=== PATIENT | male | born 1980 | race Caucasian/White ===

== ENCOUNTER 2021-05-14 23:22 | Observation (INO) | payer OTHER ==
[2021-05-15] MEDS ORDERED: Vancomycin 2 GM in Sodium Chloride 0.9% 500 ML IV ONE (00:21)
[2021-05-15] MEDS ORDERED: Clindamycin Phosphate in D5W 900 MG in Premix Bag 1 BAG IV ONE ×2 (00:21)
[2021-05-15] MEDS ORDERED: Piperacillin/Tazobactam 4.5 GM in Sodium Chloride 0.9% 100 ML IV ONE (00:22)
[2021-05-15] MEDS ORDERED: HYDROmorphone 1 MG/ML Syringe IVPUSH PRN (00:24)
[2021-05-15] MEDS: Sodium Chloride 0.9% 1,000 ML IV SCH ×2 (00:56→22:05)
[2021-05-15] MEDS ORDERED: Insulin Regular, Human 100 Units/ML 3 ML Vial SUBCUT ONE (01:34)
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
[2021-05-15] MEDS ORDERED: Ondansetron 4 MG/2 ML SDV ONE (08:10)
[2021-05-15] MEDS ORDERED: Sodium Chloride 0.9% 1,000 ML ONE ×2 (08:10→09:03)
[2021-05-15] MEDS ORDERED: Midazolam 1 MG/ML 2 ML SDV ONE ×2 (08:11→08:23)
[2021-05-15] MEDS ORDERED: fentaNYL 100 MCG/2 ML SDV ONE (08:11)
[2021-05-15] MEDS ORDERED: Propofol 200 MG/20 ML SDV ONE ×3 (08:11→09:13)
[2021-05-15] MEDS ORDERED: Ketamine 500 mg/10 ML MDV ONE (08:12)
[2021-05-15] MEDS ORDERED: Albuterol 0.083% 2.5 MG/3 ML Neb Soln ONE (08:18)
[2021-05-15] MEDS ORDERED: HYDROmorphone 0.5 MG/0.5 ML Syringe IVPUSH PRN (08:38)
[2021-05-15] MEDS ORDERED: fentaNYL 100 MCG/2 ML SDV IVPUSH PRN (08:38)
[2021-05-15] MEDS ORDERED: Albuterol 0.083% 2.5 MG/3 ML Neb Soln NEB PRN (08:38)
[2021-05-15] MEDS ORDERED: Ondansetron 4 MG/2 ML SDV IVPUSH PRN (08:38)
[2021-05-15] MEDS ORDERED: Insulin Regular, Human 100 Units/ML 3 ML Vial SUBCUT SCH (09:00)
[2021-05-15] MEDS ORDERED: Polyethylene Glycol 3350 Powder 17 GM Packet PO PRN (09:51)
[2021-05-15] MEDS ORDERED: Acetaminophen/HYDROcodone 325-5 MG Tab PO PRN (09:51)
[2021-05-15] MEDS ORDERED: Ondansetron 4 MG Tab.DIS PO PRN (09:51)
--- NOTE | 2021-05-15 09:59 | PCM48HPAN ---
Post Anesthesia Note - EVALUATION WITHIN 48HRS OF ANESTHETIC Vital Signs in Normal Range: Yes Patient Participated in Evaluation: Yes Respiratory Function Stable: Yes Airway Patent: Yes Cardiovascular Function Stable: Yes Hydration Status Stable: Yes Pain Control Satisfactory: Yes Nausea and Vomiting Control Satisfactory: Yes Mental Status Recovered: Yes Vital Signs: Last Vital Signs Temp 38.6 C H 05/15/21 09:49 Pulse 112 H 05/15/21 09:49 Resp 12 05/15/21 09:49 BP 131/65 05/15/21 09:49 Pulse Ox 93 L 05/15/21 09:49
[2021-05-15 10:00] LABS: HEMOGLOBIN A1C 10.9 %
[2021-05-15] MEDS: Acetaminophen 325 MG Tab PO PRN ×2 (10:41→20:37)
[2021-05-15] MEDS: Clindamycin Phosphate in D5W 900 MG in Premix Bag 1 BAG IV SCH ×4 (10:50→17:23)
[2021-05-15] MEDS: Insulin Lispro 100 UNIT/ML 10 ML Vial SUBCUT SCH ×3 (11:16→21:13)
[2021-05-15] MEDS ORDERED: Insulin Glarg,Human.Rec.Analog 100 Unit/ML SUBCUT SCH (12:00)
[2021-05-15] MEDS ORDERED: Vancomycin 2 GM in Sodium Chloride 0.9% 500 ML IV SCH ×2 (12:00)
[2021-05-15] MEDS: Vancomycin 2 GM in Sodium Chloride 0.9% 500 ML IV SCH ×2 (12:01→20:27)
[2021-05-15] MEDS: Piperacillin/Tazobactam 4.5 GM in Sodium Chloride 0.9% 100 ML IV SCH ×2 (12:30→18:39)
--- NOTE | 2021-05-15 13:05 | PCM.CONS ---
H&P History of Present Illness - General Date of Service: 05/15/21 Admit Problem/Dx: Admission Diagnosis/Problem Admission Diagnosis/Problem Infection of skin - History of Present Illness Initial Comments - Free Text/Narative: 41-year-old male with uncontrolled type II diabetes mellitus who presented to the emergency room with a right medial upper thigh soft tissue infection. Patient states that he started having a tender area in the right upper thigh 2 days ago. He was admitted to surgery for surgical I&D and debridement. Patient's blood sugars were noted to be in the 300s and medicine was consulted. Patient underwent I&D this morning with good results and antibiotic coverage is being managed by surgical team. Patient states that he first developed diabetes several years ago. He was on Glucophage, and another medicine but stopped them when he ran out. He works full-time and was unable to get to the clinic. Patient denies any recent weight gain or loss. Right Thigh Pain Score (Numeric/FACES): 2 - Related Data Allergies/Adverse Reactions: Allergies Allergy/AdvReac Type Severity Reaction Status Date / Time ciprofloxacin [From Cipro] Allergy Cannot Verified 05/14/21 23:43 Remember Penicillins Allergy Rash Verified 05/14/21 23:43 Home Medications: Home Meds Cetirizine HCl [Zyrtec] 1 tab PO BEDTIME 05/14/21 [History] Past Medical History Endocrine/Metabolic History: Reports: Diabetes, Type II Hematologic History: Reports: Other (See Below) Other Hematologic History: skin graft on L foot 2000 - Infectious Disease History Infectious Disease History: Reports: Chicken Pox - Past Surgical History Musculoskeletal Surgical History: Reports: Other (See Below) Other Musculoskeletal Surgeries/Procedures:: L foot surgery, pins and screws placed Social & Family History - Family History Family Medical History: No Pertinent Family History - Tobacco Use Tobacco Use Status *Q: Current Every Day Tobacco User Years of Tobacco use: 23 Packs/Tins Daily: 0.7 Used Tobacco, but Quit: No Second Hand Smoke Exposure: Yes - Caffeine Use Caffeine Use: Reports: Coffee, Energy Drinks, Soda Caffeine Use Comment: Pt verbalized drinking approximately 12 pack a day of energy drinks and soda, coffee PRN. - Alcohol Use Date of Last Drink: 04/30/21 Time of Last Drink: 20:00 - Recreational Drug Use Recreational Drug Use: No H&P Review of Systems - Review of Systems: Review Of Systems: Comprehensive ROS is negative, except as noted in HPI. Exam - Exam Exam: See Below - Vital Signs Vital Signs: Last Vital Signs Temp 101.0 F H 05/15/21 10:41 Pulse 96 05/15/21 11:46 Resp 18 05/15/21 10:00 BP 114/57 L 05/15/21 11:46 Pulse Ox 96 05/15/21 11:46 Weight: 347 lb 8 oz - Exam Quality Assessment: No: Supplemental Oxygen General: Alert, Oriented HEENT: Conjunctiva Clear, EOMI, Hearing Intact, Mucosa Moist & [place] Neck: Supple, Trachea Midline, 2 Lungs: Clear to Auscultation, Normal Respiratory Effort Cardiovascular: Regular Rate, Regular Rhythm GI/Abdominal Exam: Normal Bowel Sounds, Soft, Non-Tender, No Organomegaly, No Distention, No Abnormal Bruit, No Mass Extremities: Normal Inspection, Normal Range of Motion, Non-Tender Neuro Extensive - Mental Status: Alert, Oriented x3, Normal Mood/Affect, Normal Cognition, Memory Intact Psychiatric: Alert, Normal Affect, Normal Mood - Patient Data Lab Results Last 24 hrs: Laboratory Results - last 24 hr 05/15/21 05/15/21 05/15/21 Range/Units 00:35 00:35 00:35 WBC 19.97 H (4.23-9.07) K/mm3 RBC 4.84 (4.63-6.08) M/mm3 Hgb 14.7 (13.7-17.5) gm/dl Hct 44.9 (40.1-51.0) % MCV 92.8 H (79.0-92.2) fl MCH 30.4 (25.7-32.2) pg MCHC 32.7 (32.2-35.5) g/dl RDW Std Deviation 43.9 (35.1-43.9) fL Plt Count 268 (163-337) K/mm3 MPV 8.5 L (9.4-12.3) fl Neut % (Auto) 81.7 H (34.0-67.9) % Lymph % (Auto) 6.9 L (21.8-53.1) % [place] % (Auto) 10.8 (5.3-12.2) % Eos % (Auto) 0.1 L (0.8-7.0) Baso % (Auto) 0.1 (0.1-1.2) % Neut # (Auto) 16.33 H (1.78-5.38) K/mm3 Lymph # (Auto) 1.38 (1.32-3.57) K/mm3 [place] # (Auto) 2.15 H (0.30-0.82) K/mm3 Eos # (Auto) 0.01 L (0.04-0.54) K/mm3 Baso # (Auto) 0.02 (0.01-0.08) K/mm3 Manual Slide Review Abnormal smear Sodium 132 L (136-145) mEq/L Potassium 4.2 (3.5-5.1) mEq/L Chloride 95 L (98-107) mEq/L Carbon Dioxide 27 (21-32) mEq/L Anion Gap 14.2 (5-15) BUN 7 (7-18) mg/dL Creatinine 0.9 (0.7-1.3) mg/dL Est Cr Clr Drug Dosing 113.78 mL/min Estimated GFR (MDRD) > 60 (>60) mL/min BUN/Creatinine Ratio 7.8 L (14-18) Glucose 357 H (70-99) mg/dL POC Glucose (70-99) mg/dL Hemoglobin A1c ( - 5.6) % Lactic Acid 1.8 (0.4-2.0) mmol/L Calcium 9.0 (8.5-10.1) mg/dL Total Bilirubin 0.6 (0.2-1.0) mg/dL AST 30 (15-37) U/L ALT 51 (16-63) U/L Alkaline Phosphatase 89 (46-116) U/L C-Reactive Protein 22.7 H* (<1.0) mg/dL Total Protein 7.3 (6.4-8.2) g/dl Albumin 3.1 L (3.4-5.0) g/dl Globulin 4.2 gm/dL Albumin/Globulin Ratio 0.7 L (1-2) SARS-CoV-2 RNA (KAR[facility]) (NEGATIVE) 05/15/21 05/15/21 05/15/21 Range/Units 00:35 01:05 07:37 WBC (4.23-9.07) K/mm3 RBC (4.63-6.08) M/mm3 Hgb (13.7-17.5) gm/dl Hct (40.1-51.0) % MCV (79.0-92.2) fl MCH (25.7-32.2) pg MCHC (32.2-35.5) g/dl RDW Std Deviation (35.1-43.9) fL Plt Count (163-337) K/mm3 MPV (9.4-12.3) fl Neut % (Auto) (34.0-67.9) % Lymph % (Auto) (21.8-53.1) % [place] % (Auto) (5.3-12.2) % Eos % (Auto) (0.8-7.0) Baso % (Auto) (0.1-1.2) % Neut # (Auto) (1.78-5.38) K/mm3 Lymph # (Auto) (1.32-3.57) K/mm3 [place] # (Auto) (0.30-0.82) K/mm3 Eos # (Auto) (0.04-0.54) K/mm3 Baso # (Auto) (0.01-0.08) K/mm3 Manual Slide Review Sodium (136-145) mEq/L Potassium (3.5-5.1) mEq/L Chloride (98-107) mEq/L Carbon Dioxide (21-32) mEq/L Anion Gap (5-15) BUN (7-18) mg/dL Creatinine (0.7-1.3) mg/dL Est Cr Clr Drug Dosing mL/min Estimated GFR (MDRD) (>60) mL/min BUN/Creatinine Ratio (14-18) Glucose (70-99) mg/dL POC Glucose 280 H (70-99) mg/dL Hemoglobin A1c 10.9 H ( - 5.6) % Lactic Acid (0.4-2.0) mmol/L Calcium (8.5-10.1) mg/dL Total Bilirubin (0.2-1.0) mg/dL AST (15-37) U/L ALT (16-63) U/L Alkaline Phosphatase (46-116) U/L C-Reactive Protein (<1.0) mg/dL Total Protein (6.4-8.2) g/dl Albumin (3.4-5.0) g/dl Globulin gm/dL Albumin/Globulin Ratio (1-2) SARS-CoV-2 RNA ([facility]AR[facility]) Negative (NEGATIVE) 05/15/21 Range/Units 10:48 WBC (4.23-9.07) K/mm3 RBC (4.63-6.08) M/mm3 Hgb (13.7-17.5) gm/dl Hct (40.1-51.0) % MCV (79.0-92.2) fl MCH (25.7-32.2) pg MCHC (32.2-35.5) g/dl RDW Std Deviation (35.1-43.9) fL Plt Count (163-337) K/mm3 MPV (9.4-12.3) fl Neut % (Auto) (34.0-67.9) % Lymph % (Auto) (21.8-53.1) % [place] % (Auto) (5.3-12.2) % Eos % (Auto) (0.8-7.0) Baso % (Auto) (0.1-1.2) % Neut # (Auto) (1.78-5.38) K/mm3 Lymph # (Auto) (1.32-3.57) K/mm3 [place] # (Auto) (0.30-0.82) K/mm3 Eos # (Auto) (0.04-0.54) K/mm3 Baso # (Auto) (0.01-0.08) K/mm3 Manual Slide Review Sodium (136-145) mEq/L Potassium (3.5-5.1) mEq/L Chloride (98-107) mEq/L Carbon Dioxide (21-32) mEq/L Anion Gap (5-15) BUN (7-18) mg/dL Creatinine (0.7-1.3) mg/dL Est Cr Clr Drug Dosing mL/min Estimated GFR (MDRD) (>60) mL/min BUN/Creatinine Ratio (14-18) Glucose (70-99) mg/dL POC Glucose 252 H (70-99) mg/dL Hemoglobin A1c ( - 5.6) % Lactic Acid (0.4-2.0) mmol/L Calcium (8.5-10.1) mg/dL Total Bilirubin (0.2-1.0) mg/dL AST (15-37) U/L ALT (16-63) U/L Alkaline Phosphatase (46-116) U/L C-Reactive Protein (<1.0) mg/dL Total Protein (6.4-8.2) g/dl Albumin (3.4-5.0) g/dl Globulin gm/dL Albumin/Globulin Ratio (1-2) SARS-CoV-2 RNA ([facility]) (NEGATIVE) Result Diagrams: 05/15/21 00:35 05/15/21 00:35 Sepsis Event Note - Evaluation Sepsis Screening Result: Possible Sepsis Risk - Focused Exam Vital Signs: Vital Signs Temp Temp Pulse Pulse Resp BP BP 05/15/21 11:46 96 114/57 L 05/15/21 11:32 97 119/58 L 05/15/21 11:17 95 133/59 L 05/15/21 11:02 93 128/64 05/15/21 10:45 131/68 05/15/21 10:41 101.0 F H 05/15/21 10:31 100.9 F H 98 132/57 L 05/15/21 10:27 103 H 108/57 L 05/15/21 10:00 103 H 18 138/63 05/15/21 09:49 101.5 F H 112 H 12 131/65 05/15/21 07:08 100.4 F 112 H 20 154/67 H 05/15/21 03:14 98.8 F 106 H 20 143/70 H Pulse Ox 05/15/21 11:46 96 05/15/21 11:32 95 05/15/21 11:17 96 05/15/21 11:02 96 05/15/21 10:45 95 05/15/21 10:41 05/15/21 10:31 94 L 05/15/21 10:27 94 L 05/15/21 10:00 97 05/15/21 09:49 93 L 05/15/21 07:08 92 L 05/15/21 03:14 94 L Consult PN Assessment/Plan POD#: 0 (1) Uncontrolled type 2 diabetes mellitus SNOMED Code(s): 124252008, 438381030 Code(s): E11.65 - TYPE 2 DIABETES MELLITUS WITH HYPERGLYCEMIA Current Visit: Yes (2) Abscess of right thigh SNOMED Code(s): 27117264507234881 Code(s): L02.415 - CUTANEOUS ABSCESS OF RIGHT LOWER LIMB Current Visit: Yes Problem List Initiated/Reviewed/Updated: Yes My Orders Last 24 Hours: My Active Orders 05/15/21 09:07 Blood Glucose Check, Bedside [RC] WITHMEALSANDBED 05/15/21 11:00 Insulin Lispro [HumaLOG] See Protocol SUBCUT QIDACANDBED 05/15/21 21:00 Insulin Glarg,Human.Rec.Analog [LantUS] 10 unit SUBCUT BID Plan: 41-year-old male with poorly controlled diabetes and hemoglobin A1c of 10.9 presented to the emergency department with skin and soft tissue infection of the right upper thigh. -Surgery managing -For his uncontrolled diabetes will start Lantus 10 units twice daily, medium dose sliding scale insulin with NovoLog, and alogliptin 25 mg daily. -Check fingerstick blood sugars 4 times daily. -Blood sugar goal between 140 - 180. -Will need close outpatient follow-up. -Consider starting Metformin in the morning if it is unlikely he will need to return to surgery or need a CT scan with contrast
[2021-05-15] MEDS ORDERED: Lidocaine 1% 4 ML ONE (15:57)
--- NOTE | 2021-05-15 16:43 | PCM.SN.2 ---
- Free Text/Narrative Note: Anesthesia Note: Start: 1600 Stop: 1640 Upon arrival to patient's room, patient supine soundly asleep, with oral cyan osis noted. Pulse oximeter placed on finger, and room air saturation while asleep = 71%. After awakened, and patient placed in high hartman's position, spo2 on room air= 96%. Dr. Perez informed of findings and telemetry ordered, along with nightly continuous pulse oximetry and oxygen therapy while sleeping. Anesthesia requested for IV start. 20 gauge to left inner wrist started times one attempt. Excellent blood return noted, and site flushed with 15ml's of normal saline. Padded arm board placed to protect site. Thank you! [place] [facility]
[2021-05-15] MEDS: Insulin Glarg,Human.Rec.Analog 100 Unit/ML SUBCUT SCH (20:28)
[2021-05-16] MEDS: Piperacillin/Tazobactam 4.5 GM in Sodium Chloride 0.9% 100 ML IV SCH ×3 (01:15→17:36)
[2021-05-16] MEDS: Clindamycin Phosphate in D5W 900 MG in Premix Bag 1 BAG IV SCH ×6 (01:16→17:36)
[2021-05-16] MEDS: Vancomycin 2 GM in Sodium Chloride 0.9% 500 ML IV SCH ×3 (03:45→21:55)
[2021-05-16] MEDS: Sodium Chloride 0.9% 1,000 ML IV SCH (04:44)
[2021-05-16] MEDS: Insulin Lispro 100 UNIT/ML 10 ML Vial SUBCUT SCH ×4 (08:18→21:57)
[2021-05-16] MEDS: Insulin Glarg,Human.Rec.Analog 100 Unit/ML SUBCUT SCH ×2 (08:18→21:56)
[2021-05-16] MEDS: Enoxaparin 40 MG/0.4 ML Syringe SUBCUT SCH (08:19)
[2021-05-16] MEDS: Nicotine 7 MG/24 Hr Patch TRDERM SCH (10:02)
--- NOTE | 2021-05-16 11:00 | PCM.PN ---
- General Info Date of Service: 05/16/21 Admission Dx/Problem (Free Text): Admission Diagnosis/Problem Admission Diagnosis/Problem Infection of skin Subjective Update: patient is doing fine, pain is minimal, no fevers or chills Functional Status: Reports: Pain Controlled, Tolerating Diet, Ambulating, Urinating - Review of Systems General: Reports: No Symptoms HEENT: Reports: No Symptoms Pulmonary: Reports: No Symptoms Cardiovascular: Reports: No Symptoms Gastrointestinal: Reports: No Symptoms Genitourinary: Reports: No Symptoms Musculoskeletal: Reports: No Symptoms - Patient Data Vitals - Most Recent: Last Vital Signs Temp 98.6 F 05/16/21 07:46 Pulse 79 05/16/21 07:46 Resp 20 05/16/21 07:46 BP 120/66 05/16/21 07:46 Pulse Ox 95 05/16/21 07:46 Weight - Most Recent: 163.293 kg I&O - Last 24 Hours: Intake & Output 05/15/21 05/16/21 05/16/21 22:59 06:59 14:59 Intake Total 2274 2550 Output Total 2500 1800 Balance -226 750 Lab Results Last 24 Hours: Laboratory Results - last 24 hr 05/15/21 05/15/21 05/15/21 Range/Units 10:48 17:21 20:07 WBC (4.23-9.07) K/mm3 RBC (4.63-6.08) M/mm3 Hgb (13.7-17.5) gm/dl Hct (40.1-51.0) % MCV (79.0-92.2) fl MCH (25.7-32.2) pg MCHC (32.2-35.5) g/dl RDW Std Deviation (35.1-43.9) fL Plt Count (163-337) K/mm3 MPV (9.4-12.3) fl Neut % (Auto) (34.0-67.9) % Lymph % (Auto) (21.8-53.1) % [place] % (Auto) (5.3-12.2) % Eos % (Auto) (0.8-7.0) Baso % (Auto) (0.1-1.2) % Neut # (Auto) (1.78-5.38) K/mm3 Lymph # (Auto) (1.32-3.57) K/mm3 [place] # (Auto) (0.30-0.82) K/mm3 Eos # (Auto) (0.04-0.54) K/mm3 Baso # (Auto) (0.01-0.08) K/mm3 Sodium (136-145) mEq/L Potassium (3.5-5.1) mEq/L Chloride (98-107) mEq/L Carbon Dioxide (21-32) mEq/L Anion Gap (5-15) BUN (7-18) mg/dL Creatinine (0.7-1.3) mg/dL Est Cr Clr Drug Dosing mL/min Estimated GFR (MDRD) (>60) mL/min BUN/Creatinine Ratio (14-18) Glucose (70-99) mg/dL POC Glucose 252 H 271 H 260 H (70-99) mg/dL Calcium (8.5-10.1) mg/dL Phosphorus (2.6-4.7) mg/dL Magnesium (1.8-2.4) mg/dL C-Reactive Protein (<1.0) mg/dL 05/16/21 05/16/21 05/16/21 Range/Units 06:07 06:07 06:48 WBC 16.88 H (4.23-9.07) K/mm3 RBC 4.11 L (4.63-6.08) M/mm3 Hgb 12.5 L D (13.7-17.5) gm/dl Hct 39.0 L (40.1-51.0) % MCV 94.9 H (79.0-92.2) fl MCH 30.4 (25.7-32.2) pg MCHC 32.1 L (32.2-35.5) g/dl RDW Std Deviation 44.0 H (35.1-43.9) fL Plt Count 234 (163-337) K/mm3 MPV 9.3 L (9.4-12.3) fl Neut % (Auto) 77.5 H (34.0-67.9) % Lymph % (Auto) 12.3 L (21.8-53.1) % [place] % (Auto) 9.5 (5.3-12.2) % Eos % (Auto) 0.2 L (0.8-7.0) Baso % (Auto) 0.1 (0.1-1.2) % Neut # (Auto) 13.07 H (1.78-5.38) K/mm3 Lymph # (Auto) 2.08 (1.32-3.57) K/mm3 [place] # (Auto) 1.60 H (0.30-0.82) K/mm3 Eos # (Auto) 0.04 (0.04-0.54) K/mm3 Baso # (Auto) 0.02 (0.01-0.08) K/mm3 Sodium 133 L (136-145) mEq/L Potassium 3.9 (3.5-5.1) mEq/L Chloride 97 L (98-107) mEq/L Carbon Dioxide 27 (21-32) mEq/L Anion Gap 12.9 (5-15) BUN 9 (7-18) mg/dL Creatinine 0.6 L (0.7-1.3) mg/dL Est Cr Clr Drug Dosing 170.67 mL/min Estimated GFR (MDRD) > 60 (>60) mL/min BUN/Creatinine Ratio 15.0 (14-18) Glucose 194 H (70-99) mg/dL POC Glucose 196 H (70-99) mg/dL Calcium 8.0 L (8.5-10.1) mg/dL Phosphorus 2.5 L (2.6-4.7) mg/dL Magnesium 2.2 (1.8-2.4) mg/dL C-Reactive Protein 33.1 H* (<1.0) mg/dL Adrien Results Last 24 Hours: Microbiology 05/15/21 00:50 Blood Culture - Preliminary Blood - Venous - Lab Draw 05/15/21 00:35 Blood Culture - Preliminary Blood - Arm, Left Med Orders - Current: Current Medications Acetaminophen (Acetaminophen 325 Mg Tab) 650 mg PO Q4H PRN PRN Reason: Pain (Mild 1-3)/fever Last Admin: 05/15/21 20:37 Dose: 650 mg Documented by: Hydrocodone Bitart/Acetaminophen (Acetaminophen/Hydrocodone 325-5 Mg Tab) 2 tab PO Q6H PRN PRN Reason: Pain (moderate 4-6) Last Admin: 05/15/21 22:51 Dose: 2 tab Documented by: Albuterol (Albuterol 0.083% 2.5 Mg/3 Ml Neb Soln) 2.5 mg NEB ONETIME PRN PRN Reason: improve oxygenation Alogliptin Benzoate (Alogliptin 25 Mg Tab) 25 mg PO DAILY [facility] Last Admin: 05/16/21 08:18 Dose: 25 mg Documented by: Enoxaparin Sodium (Enoxaparin 40 Mg/0.4 Ml Syringe) 40 mg SUBCUT DAILY [facility] Last Admin: 05/16/21 08:19 Dose: 40 mg Documented by: Hydromorphone HCl (Hydromorphone 1 Mg/Ml Syringe) 1 mg IVPUSH Q6H PRN PRN Reason: Pain Sodium Chloride (Normal Saline) 1,000 mls @ 100 mls/hr IV ASDIRECTED [facility] Last Admin: 05/16/21 04:44 Dose: 150 mls/hr Documented by: Clindamycin Phosphate 900 mg/ (Premix) 50 mls @ 100 mls/hr IV Q8H [facility] Last Admin: 05/16/21 10:12 Dose: 100 mls/hr Documented by: Piperacillin Sod/Tazobactam (Sod 4.5 gm/ Sodium Chloride) 100 mls @ 25 mls/hr IV Q8H [facility] Last Admin: 05/16/21 10:13 Dose: 25 mls/hr Documented by: Vancomycin HCl 2 gm/ Sodium (Chloride) 500 mls @ 250 mls/hr IV Q8H [facility] Last Admin: 05/16/21 03:45 Dose: 250 mls/hr Documented by: Insulin Glargine (Insulin Glarg,Human.Rec.Analog 100 Unit/Ml) 10 unit SUBCUT BID [facility] Last Admin: 05/16/21 08:18 Dose: 10 units Documented by: Insulin Human Lispro (Insulin Lispro 100 Unit/Ml 10 Ml Vial) 0 unit SUBCUT QIDACANDBED [facility]; Protocol Last Admin: 05/16/21 08:18 Dose: 2 units Documented by: Loratadine (Loratadine 10 Mg Tab) 10 mg PO BEDTIME [facility] Miscellaneous Information (Remove Patch*Nicotine Patch*) 1 ea TRDERM DAILY [facility] Nicotine (Nicotine 7 Mg/24 Hr Patch) 7 mg TRDERM DAILY [facility] Last Admin: 05/16/21 10:02 Dose: 7 mg Documented by: Ondansetron HCl (Ondansetron 4 Mg Tab.Dis) 4 mg PO Q4H PRN PRN Reason: nausea, able to take PO Polyethylene Glycol (Polyethylene Glycol 3350 Powder 17 Gm Packet) 17 gm PO DAILY PRN PRN Reason: Constipation Vancomycin HCl (Pharmacy To Dose - Vancomycin) 1 dose .XX ASDIRECTED SHAHID Discontinued Medications Albuterol (Albuterol 0.083% 2.5 Mg/3 Ml Neb Soln) Confirm Administered Dose 2.5 mg .ROUTE .STK-MED ONE Stop: 05/15/21 08:19 Fentanyl (Fentanyl 100 Mcg/2 Ml Sdv) Confirm Administered Dose 100 mcg .ROUTE .STK-MED ONE Stop: 05/15/21 08:12 Fentanyl (Fentanyl 100 Mcg/2 Ml Sdv) 50 mcg IVPUSH Q20M PRN PRN Reason: Pain Glycopyrrolate (Glycopyrrolate 0.2 Mg/Ml 2 Ml Syringe) Confirm Administered Dose 0.4 mg .ROUTE .STK-MED ONE Stop: 05/15/21 08:11 Hydromorphone HCl (Hydromorphone 0.5 Mg/0.5 Ml Syringe) 0.5 mg IVPUSH Q10M PRN PRN Reason: Pain (severe 7-10) Vancomycin HCl 2 gm/ Sodium (Chloride) 500 mls @ 250 mls/hr IV ONETIME ONE Stop: 05/15/21 00:22 Last Admin: 05/15/21 02:03 Dose: 250 mls/hr Documented by: Piperacillin Sod/Tazobactam (Sod 4.5 gm/ Sodium Chloride) 100 mls @ 200 mls/hr IV ONETIME ONE Stop: 05/15/21 00:51 Last Admin: 05/15/21 01:30 Dose: 200 mls/hr Documented by: Clindamycin Phosphate 900 mg/ (Premix) 50 mls @ 100 mls/hr IV ONETIME ONE Stop: 05/15/21 00:50 Last Admin: 05/15/21 00:57 Dose: 100 mls/hr Documented by: Sodium Chloride (Normal Saline) Confirm Administered Dose 1,000 mls @ as directed .ROUTE .STK-MED ONE Stop: 05/15/21 08:11 Sodium Chloride (Normal Saline) Confirm Administered Dose 1,000 mls @ as directed .ROUTE .STK-MED ONE Stop: 05/15/21 09:04 Vancomycin HCl 2 gm/ Sodium (Chloride) 500 mls @ 250 mls/hr IV Q8H [facility] Vancomycin HCl 2 gm/ Sodium (Chloride) 500 mls @ 250 mls/hr IV Q8H [facility] Lidocaine HCl (Xylocaine-Mpf 1%) Confirm Administered Dose 4 mls @ as directed .ROUTE .STK-MED ONE Stop: 05/15/21 15:58 Insulin Glargine (Insulin Glarg,Human.Rec.Analog 100 Unit/Ml) 10 unit SUBCUT DAILY [facility] Last Admin: 05/15/21 11:42 Dose: 10 units Documented by: Insulin Human Regular (Insulin Regular, Human 100 Units/Ml 3 Ml Vial) 10 unit SUBCUT ONETIME ONE Stop: 05/15/21 01:35 Last Admin: 05/15/21 01:51 Dose: 10 unit Documented by: Insulin Human Regular (Insulin Regular, Human 100 Units/Ml 3 Ml Vial) 0 unit SUBCUT QID [facility]; Protocol Last Admin: 05/16/21 05:03 Dose: Not Given Documented by: Ketamine HCl (Ketamine 500 Mg/10 Ml Mdv) Confirm Administered Dose 500 mg .ROUTE .STK-MED ONE Stop: 05/15/21 08:13 Midazolam HCl (Midazolam 1 Mg/Ml 2 Ml Sdv) Confirm Administered Dose 2 mg .ROUTE .STK-MED ONE Stop: 05/15/21 08:12 Midazolam HCl (Midazolam 1 Mg/Ml 2 Ml Sdv) Confirm Administered Dose 2 mg .ROUTE .STK-MED ONE Stop: 05/15/21 08:24 Ondansetron HCl (Ondansetron 4 Mg/2 Ml Sdv) Confirm Administered Dose 4 mg .ROUTE .STK-MED ONE Stop: 05/15/21 08:11 Ondansetron HCl (Ondansetron 4 Mg/2 Ml Sdv) 4 mg IVPUSH ONETIME PRN PRN Reason: Nausea/Vomiting Propofol (Propofol 200 Mg/20 Ml Sdv) Confirm Administered Dose 200 mg .ROUTE .STK-MED ONE Stop: 05/15/21 08:12 Propofol (Propofol 200 Mg/20 Ml Sdv) Confirm Administered Dose 200 mg .ROUTE .STK-MED ONE Stop: 05/15/21 08:49 Propofol (Propofol 200 Mg/20 Ml Sdv) Confirm Administered Dose 200 mg .ROUTE .STK-MED ONE Stop: 05/15/21 09:14 - Exam General: Alert, Oriented, Cooperative Lungs: Clear to Auscultation, Normal Respiratory Effort Cardiovascular: Regular Rate, Regular Rhythm, No Murmurs Wound/Incisions: Erythema, Other (wound is clean and no other areas of necrosis this PM) - Patient Data Lab Results Last 24 hrs: Laboratory Results - last 24 hr 05/15/21 05/15/21 05/15/21 Range/Units 10:48 17:21 20:07 WBC (4.23-9.07) K/mm3 RBC (4.63-6.08) M/mm3 Hgb (13.7-17.5) gm/dl Hct (40.1-51.0) % MCV (79.0-92.2) fl MCH (25.7-32.2) pg MCHC (32.2-35.5) g/dl RDW Std Deviation (35.1-43.9) fL Plt Count (163-337) K/mm3 MPV (9.4-12.3) fl Neut % (Auto) (34.0-67.9) % Lymph % (Auto) (21.8-53.1) % [place] % (Auto) (5.3-12.2) % Eos % (Auto) (0.8-7.0) Baso % (Auto) (0.1-1.2) % Neut # (Auto) (1.78-5.38) K/mm3 Lymph # (Auto) (1.32-3.57) K/mm3 [place] # (Auto) (0.30-0.82) K/mm3 Eos # (Auto) (0.04-0.54) K/mm3 Baso # (Auto) (0.01-0.08) K/mm3 Sodium (136-145) mEq/L Potassium (3.5-5.1) mEq/L Chloride (98-107) mEq/L Carbon Dioxide (21-32) mEq/L Anion Gap (5-15) BUN (7-18) mg/dL Creatinine (0.7-1.3) mg/dL Est Cr Clr Drug Dosing mL/min Estimated GFR (MDRD) (>60) mL/min BUN/Creatinine Ratio (14-18) Glucose (70-99) mg/dL POC Glucose 252 H 271 H 260 H (70-99) mg/dL Calcium (8.5-10.1) mg/dL Phosphorus (2.6-4.7) mg/dL Magnesium (1.8-2.4) mg/dL C-Reactive Protein (<1.0) mg/dL 05/16/21 05/16/21 05/16/21 Range/Units 06:07 06:07 06:48 WBC 16.88 H (4.23-9.07) K/mm3 RBC 4.11 L (4.63-6.08) M/mm3 Hgb 12.5 L D (13.7-17.5) gm/dl Hct 39.0 L (40.1-51.0) % MCV 94.9 H (79.0-92.2) fl MCH 30.4 (25.7-32.2) pg MCHC 32.1 L (32.2-35.5) g/dl RDW Std Deviation 44.0 H (35.1-43.9) fL Plt Count 234 (163-337) K/mm3 MPV 9.3 L (9.4-12.3) fl Neut % (Auto) 77.5 H (34.0-67.9) % Lymph % (Auto) 12.3 L (21.8-53.1) % [place] % (Auto) 9.5 (5.3-12.2) % Eos % (Auto) 0.2 L (0.8-7.0) Baso % (Auto) 0.1 (0.1-1.2) % Neut # (Auto) 13.07 H (1.78-5.38) K/mm3 Lymph # (Auto) 2.08 (1.32-3.57) K/mm3 [place] # (Auto) 1.60 H (0.30-0.82) K/mm3 Eos # (Auto) 0.04 (0.04-0.54) K/mm3 Baso # (Auto) 0.02 (0.01-0.08) K/mm3 Sodium 133 L (136-145) mEq/L Potassium 3.9 (3.5-5.1) mEq/L Chloride 97 L (98-107) mEq/L Carbon Dioxide 27 (21-32) mEq/L Anion Gap 12.9 (5-15) BUN 9 (7-18) mg/dL Creatinine 0.6 L (0.7-1.3) mg/dL Est Cr Clr Drug Dosing 170.67 mL/min Estimated GFR (MDRD) > 60 (>60) mL/min BUN/Creatinine Ratio 15.0 (14-18) Glucose 194 H (70-99) mg/dL POC Glucose 196 H (70-99) mg/dL Calcium 8.0 L (8.5-10.1) mg/dL Phosphorus 2.5 L (2.6-4.7) mg/dL Magnesium 2.2 (1.8-2.4) mg/dL C-Reactive Protein 33.1 H* (<1.0) mg/dL Result Diagrams: 05/16/21 06:07 05/16/21 06:07 Adrien Results Last 24 hrs: Microbiology 05/15/21 00:50 Blood Culture - Preliminary Blood - Venous - Lab Draw 05/15/21 00:35 Blood Culture - Preliminary Blood - Arm, Left Sepsis Event Note - Evaluation Sepsis Screening Result: No Definite Risk - Focused Exam Vital Signs: Vital Signs Temp Pulse Resp BP Pulse Ox 05/16/21 07:46 98.6 F 79 20 120/66 95 05/16/21 06:49 98.2 F 81 20 133/63 96 05/16/21 01:26 73 18 120/69 100 - Problem List Review Problem List Initiated/Reviewed/Updated: No - My Orders Last 24 Hours: My Active Orders 05/15/21 09:57 Wound Management Education [OM.PC] Routine 05/15/21 10:00 Clindamycin Phosphate in D5W [Cleocin in D5W 900 MG/50 ML] 900 mg Premix Bag 1 bag IV Q8H Piperacillin/Tazobactam [Piperacil-Tazobact] 4.5 gm Sodium Chloride 0.9% [Normal Saline] 100 ml IV Q8H 05/15/21 Lunch Consistent Carbohydrate Diet [DIET] 05/15/21 11:15 Pharmacy to Dose - Vancomycin 1 dose .XX ASDIRECTED 05/15/21 12:00 Vancomycin 2 gm Sodium Chloride 0.9% [Normal Saline] 500 ml IV Q8H 05/15/21 16:34 Telemetry Monitoring [Cardiac Monitoring] [RC] . DIRECTED 05/15/21 16:35 Overnight Pulse Oximetry [Overnight Pulse Oximetry] [RC] Click to Edit 05/15/21 16:58 Patient Status [ADT] Routine 05/15/21 20:00 Wound Care [RC] BID 05/16/21 09:00 Enoxaparin [Lovenox] 40 mg SUBCUT DAILY 05/16/21 09:45 Nicotine [Habitrol] 7 mg TRDERM DAILY 05/16/21 21:00 Loratadine [Claritin] 10 mg PO BEDTIME 05/17/21 05:11 BASIC METABOLIC PANEL,BMP [CHEM] AM C-REACTIVE PROTEIN [CHEM] AM CBC WITH AUTO DIFF [HEME] AM MAGNESIUM [CHEM] AM PHOSPHORUS [CHEM] AM 05/18/21 05:11 BASIC METABOLIC PANEL,BMP [CHEM] AM C-REACTIVE PROTEIN [CHEM] AM CBC WITH AUTO DIFF [HEME] AM MAGNESIUM [CHEM] AM PHOSPHORUS [CHEM] AM 05/19/21 05:11 CBC WITH AUTO DIFF [HEME] AM 05/20/21 05:11 CBC WITH AUTO DIFF [HEME] AM - Assessment Assessment:: POD1 s/p wound debridement, right medial upper thigh. - Plan Plan:: - continue BID dressing changes as ordered - COntinue IV abx. Blood cx currently negative, wound cultures not back yet - reg diet - d/c IVF continue to ambulate PRN
--- NOTE | 2021-05-16 15:00 | PCM.CONSN ---
- General Info Date of Service: 05/16/21 Admission Dx/Problem (Free Text): Admission Diagnosis/Problem Admission Diagnosis/Problem Infection of skin Subjective Update: Blood sugars are improving. Fasting blood sugars in the 190s and prelunch in the low 200s. Functional Status: Reports: Pain Controlled - Review of Systems General: Reports: No Symptoms HEENT: Reports: No Symptoms Pulmonary: Reports: No Symptoms Cardiovascular: Reports: No Symptoms - Patient Data Vitals - Most Recent: Last Vital Signs Temp 98.6 F 05/16/21 07:46 Pulse 79 05/16/21 07:46 Resp 20 05/16/21 07:46 BP 120/66 05/16/21 07:46 Pulse Ox 95 05/16/21 07:46 Weight - Most Recent: 360 lb I&O - Last 24 Hours: Intake & Output 05/15/21 05/16/21 05/16/21 22:59 06:59 14:59 Intake Total 2274 2550 360 Output Total 2500 1800 Balance -226 750 360 Lab Results Last 24 Hours: Laboratory Results - last 24 hr 05/15/21 05/15/21 05/16/21 Range/Units 17:21 20:07 06:07 WBC 16.88 H (4.23-9.07) K/mm3 RBC 4.11 L (4.63-6.08) M/mm3 Hgb 12.5 L D (13.7-17.5) gm/dl Hct 39.0 L (40.1-51.0) % MCV 94.9 H (79.0-92.2) fl MCH 30.4 (25.7-32.2) pg MCHC 32.1 L (32.2-35.5) g/dl RDW Std Deviation 44.0 H (35.1-43.9) fL Plt Count 234 (163-337) K/mm3 MPV 9.3 L (9.4-12.3) fl Neut % (Auto) 77.5 H (34.0-67.9) % Lymph % (Auto) 12.3 L (21.8-53.1) % Mcleod % (Auto) 9.5 (5.3-12.2) % Eos % (Auto) 0.2 L (0.8-7.0) Baso % (Auto) 0.1 (0.1-1.2) % Neut # (Auto) 13.07 H (1.78-5.38) K/mm3 Lymph # (Auto) 2.08 (1.32-3.57) K/mm3 Mcleod # (Auto) 1.60 H (0.30-0.82) K/mm3 Eos # (Auto) 0.04 (0.04-0.54) K/mm3 Baso # (Auto) 0.02 (0.01-0.08) K/mm3 Manual Slide Review Abnormal smear Sodium (136-145) mEq/L Potassium (3.5-5.1) mEq/L Chloride (98-107) mEq/L Carbon Dioxide (21-32) mEq/L Anion Gap (5-15) BUN (7-18) mg/dL Creatinine (0.7-1.3) mg/dL Est Cr Clr Drug Dosing mL/min Estimated GFR (MDRD) (>60) mL/min BUN/Creatinine Ratio (14-18) Glucose (70-99) mg/dL POC Glucose 271 H 260 H (70-99) mg/dL Calcium (8.5-10.1) mg/dL Phosphorus (2.6-4.7) mg/dL Magnesium (1.8-2.4) mg/dL C-Reactive Protein (<1.0) mg/dL Vancomycin Trough (10.0-20.0) 05/16/21 05/16/21 05/16/21 Range/Units 06:07 06:48 10:53 WBC (4.23-9.07) K/mm3 RBC (4.63-6.08) M/mm3 Hgb (13.7-17.5) gm/dl Hct (40.1-51.0) % MCV (79.0-92.2) fl MCH (25.7-32.2) pg MCHC (32.2-35.5) g/dl RDW Std Deviation (35.1-43.9) fL Plt Count (163-337) K/mm3 MPV (9.4-12.3) fl Neut % (Auto) (34.0-67.9) % Lymph % (Auto) (21.8-53.1) % Mcleod % (Auto) (5.3-12.2) % Eos % (Auto) (0.8-7.0) Baso % (Auto) (0.1-1.2) % Neut # (Auto) (1.78-5.38) K/mm3 Lymph # (Auto) (1.32-3.57) K/mm3 Mcleod # (Auto) (0.30-0.82) K/mm3 Eos # (Auto) (0.04-0.54) K/mm3 Baso # (Auto) (0.01-0.08) K/mm3 Manual Slide Review Sodium 133 L (136-145) mEq/L Potassium 3.9 (3.5-5.1) mEq/L Chloride 97 L (98-107) mEq/L Carbon Dioxide 27 (21-32) mEq/L Anion Gap 12.9 (5-15) BUN 9 (7-18) mg/dL Creatinine 0.6 L (0.7-1.3) mg/dL Est Cr Clr Drug Dosing 170.67 mL/min Estimated GFR (MDRD) > 60 (>60) mL/min BUN/Creatinine Ratio 15.0 (14-18) Glucose 194 H (70-99) mg/dL POC Glucose 196 H 207 H (70-99) mg/dL Calcium 8.0 L (8.5-10.1) mg/dL Phosphorus 2.5 L (2.6-4.7) mg/dL Magnesium 2.2 (1.8-2.4) mg/dL C-Reactive Protein 33.1 H* (<1.0) mg/dL Vancomycin Trough (10.0-20.0) 05/16/21 Range/Units 11:21 WBC (4.23-9.07) K/mm3 RBC (4.63-6.08) M/mm3 Hgb (13.7-17.5) gm/dl Hct (40.1-51.0) % MCV (79.0-92.2) fl MCH (25.7-32.2) pg MCHC (32.2-35.5) g/dl RDW Std Deviation (35.1-43.9) fL Plt Count (163-337) K/mm3 MPV (9.4-12.3) fl Neut % (Auto) (34.0-67.9) % Lymph % (Auto) (21.8-53.1) % Mcleod % (Auto) (5.3-12.2) % Eos % (Auto) (0.8-7.0) Baso % (Auto) (0.1-1.2) % Neut # (Auto) (1.78-5.38) K/mm3 Lymph # (Auto) (1.32-3.57) K/mm3 Mcleod # (Auto) (0.30-0.82) K/mm3 Eos # (Auto) (0.04-0.54) K/mm3 Baso # (Auto) (0.01-0.08) K/mm3 Manual Slide Review Sodium (136-145) mEq/L Potassium (3.5-5.1) mEq/L Chloride (98-107) mEq/L Carbon Dioxide (21-32) mEq/L Anion Gap (5-15) BUN (7-18) mg/dL Creatinine (0.7-1.3) mg/dL Est Cr Clr Drug Dosing mL/min Estimated GFR (MDRD) (>60) mL/min BUN/Creatinine Ratio (14-18) Glucose (70-99) mg/dL POC Glucose (70-99) mg/dL Calcium (8.5-10.1) mg/dL Phosphorus (2.6-4.7) mg/dL Magnesium (1.8-2.4) mg/dL C-Reactive Protein (<1.0) mg/dL Vancomycin Trough 9.6 L (10.0-20.0) Adrien Results Last 24 Hours: Microbiology 05/15/21 00:50 Blood Culture - Preliminary Blood - Venous - Lab Draw 05/15/21 00:35 Blood Culture - Preliminary Blood - Arm, Left Med Orders - Current: Current Medications Acetaminophen (Acetaminophen 325 Mg Tab) 650 mg PO Q4H PRN PRN Reason: Pain (Mild 1-3)/fever Last Admin: 05/15/21 20:37 Dose: 650 mg Documented by: Hydrocodone Bitart/Acetaminophen (Acetaminophen/Hydrocodone 325-5 Mg Tab) 2 tab PO Q6H PRN PRN Reason: Pain (moderate 4-6) Last Admin: 05/15/21 22:51 Dose: 2 tab Documented by: Albuterol (Albuterol 0.083% 2.5 Mg/3 Ml Neb Soln) 2.5 mg NEB ONETIME PRN PRN Reason: improve oxygenation Alogliptin Benzoate (Alogliptin 25 Mg Tab) 25 mg PO DAILY [facility] Last Admin: 05/16/21 08:18 Dose: 25 mg Documented by: Enoxaparin Sodium (Enoxaparin 40 Mg/0.4 Ml Syringe) 40 mg SUBCUT DAILY [facility] Last Admin: 05/16/21 08:19 Dose: 40 mg Documented by: Hydromorphone HCl (Hydromorphone 1 Mg/Ml Syringe) 1 mg IVPUSH Q6H PRN PRN Reason: Pain Clindamycin Phosphate 900 mg/ (Premix) 50 mls @ 100 mls/hr IV Q8H [facility] Last Admin: 05/16/21 10:12 Dose: 100 mls/hr Documented by: Piperacillin Sod/Tazobactam (Sod 4.5 gm/ Sodium Chloride) 100 mls @ 25 mls/hr IV Q8H [facility] Last Admin: 05/16/21 10:13 Dose: 25 mls/hr Documented by: Vancomycin HCl 2 gm/ Sodium (Chloride) 500 mls @ 250 mls/hr IV Q8H [facility] Last Admin: 05/16/21 12:36 Dose: 250 mls/hr Documented by: Insulin Glargine (Insulin Glarg,Human.Rec.Analog 100 Unit/Ml) 10 unit SUBCUT BID [facility] Last Admin: 05/16/21 08:18 Dose: 10 units Documented by: Insulin Human Lispro (Insulin Lispro 100 Unit/Ml 10 Ml Vial) 0 unit SUBCUT QIDACANDBED [facility]; Protocol Last Admin: 05/16/21 12:14 Dose: 4 units Documented by: Loratadine (Loratadine 10 Mg Tab) 10 mg PO BEDTIME [facility] Miscellaneous Information (Remove Patch*Nicotine Patch*) 1 ea TRDERM DAILY [facility] Nicotine (Nicotine 7 Mg/24 Hr Patch) 7 mg TRDERM DAILY [facility] Last Admin: 05/16/21 10:02 Dose: 7 mg Documented by: Ondansetron HCl (Ondansetron 4 Mg Tab.Dis) 4 mg PO Q4H PRN PRN Reason: nausea, able to take PO Polyethylene Glycol (Polyethylene Glycol 3350 Powder 17 Gm Packet) 17 gm PO DAILY PRN PRN Reason: Constipation Vancomycin HCl (Pharmacy To Dose - Vancomycin) 1 dose .XX ASDIRECTED [facility] Discontinued Medications Albuterol (Albuterol 0.083% 2.5 Mg/3 Ml Neb Soln) Confirm Administered Dose 2.5 mg .ROUTE .STK-MED ONE Stop: 05/15/21 08:19 Fentanyl (Fentanyl 100 Mcg/2 Ml Sdv) Confirm Administered Dose 100 mcg .ROUTE .STK-MED ONE Stop: 05/15/21 08:12 Fentanyl (Fentanyl 100 Mcg/2 Ml Sdv) 50 mcg IVPUSH Q20M PRN PRN Reason: Pain Glycopyrrolate (Glycopyrrolate 0.2 Mg/Ml 2 Ml Syringe) Confirm Administered Dose 0.4 mg .ROUTE .STK-MED ONE Stop: 05/15/21 08:11 Hydromorphone HCl (Hydromorphone 0.5 Mg/0.5 Ml Syringe) 0.5 mg IVPUSH Q10M PRN PRN Reason: Pain (severe 7-10) Sodium Chloride (Normal Saline) 1,000 mls @ 100 mls/hr IV ASDIRECTED [facility] Last Admin: 05/16/21 04:44 Dose: 150 mls/hr Documented by: Vancomycin HCl 2 gm/ Sodium (Chloride) 500 mls @ 250 mls/hr IV ONETIME ONE Stop: 05/15/21 00:22 Last Admin: 05/15/21 02:03 Dose: 250 mls/hr Documented by: Piperacillin Sod/Tazobactam (Sod 4.5 gm/ Sodium Chloride) 100 mls @ 200 mls/hr IV ONETIME ONE Stop: 05/15/21 00:51 Last Admin: 05/15/21 01:30 Dose: 200 mls/hr Documented by: Clindamycin Phosphate 900 mg/ (Premix) 50 mls @ 100 mls/hr IV ONETIME ONE Stop: 05/15/21 00:50 Last Admin: 05/15/21 00:57 Dose: 100 mls/hr Documented by: Sodium Chloride (Normal Saline) Confirm Administered Dose 1,000 mls @ as directed .ROUTE .STK-MED ONE Stop: 05/15/21 08:11 Sodium Chloride (Normal Saline) Confirm Administered Dose 1,000 mls @ as directed .ROUTE .STK-MED ONE Stop: 05/15/21 09:04 Vancomycin HCl 2 gm/ Sodium (Chloride) 500 mls @ 250 mls/hr IV Q8H [facility] Vancomycin HCl 2 gm/ Sodium (Chloride) 500 mls @ 250 mls/hr IV Q8H [facility] Lidocaine HCl (Xylocaine-Mpf 1%) Confirm Administered Dose 4 mls @ as directed .ROUTE .STK-MED ONE Stop: 05/15/21 15:58 Insulin Glargine (Insulin Glarg,Human.Rec.Analog 100 Unit/Ml) 10 unit SUBCUT DAILY [facility] Last Admin: 05/15/21 11:42 Dose: 10 units Documented by: Insulin Human Regular (Insulin Regular, Human 100 Units/Ml 3 Ml Vial) 10 unit SUBCUT ONETIME ONE Stop: 05/15/21 01:35 Last Admin: 05/15/21 01:51 Dose: 10 unit Documented by: Insulin Human Regular (Insulin Regular, Human 100 Units/Ml 3 Ml Vial) 0 unit SUBCUT QID [facility]; Protocol Last Admin: 05/16/21 05:03 Dose: Not Given Documented by: Ketamine HCl (Ketamine 500 Mg/10 Ml Mdv) Confirm Administered Dose 500 mg .ROUTE .STK-MED ONE Stop: 05/15/21 08:13 Midazolam HCl (Midazolam 1 Mg/Ml 2 Ml Sdv) Confirm Administered Dose 2 mg .ROUTE .STK-MED ONE Stop: 05/15/21 08:12 Midazolam HCl (Midazolam 1 Mg/Ml 2 Ml Sdv) Confirm Administered Dose 2 mg .ROUTE .STK-MED ONE Stop: 05/15/21 08:24 Ondansetron HCl (Ondansetron 4 Mg/2 Ml Sdv) Confirm Administered Dose 4 mg .ROUTE .STK-MED ONE Stop: 05/15/21 08:11 Ondansetron HCl (Ondansetron 4 Mg/2 Ml Sdv) 4 mg IVPUSH ONETIME PRN PRN Reason: Nausea/Vomiting Propofol (Propofol 200 Mg/20 Ml Sdv) Confirm Administered Dose 200 mg .ROUTE .STK-MED ONE Stop: 05/15/21 08:12 Propofol (Propofol 200 Mg/20 Ml Sdv) Confirm Administered Dose 200 mg .ROUTE .STK-MED ONE Stop: 05/15/21 08:49 Propofol (Propofol 200 Mg/20 Ml Sdv) Confirm Administered Dose 200 mg .ROUTE .STK-MED ONE Stop: 05/15/21 09:14 - Exam Quality Assessment: No: Supplemental Oxygen General: Alert, Oriented HEENT: Pupils Equal, Mucous Membr. Moist/[place] Neck: Supple Lungs: Clear to Auscultation, Normal Respiratory Effort Cardiovascular: Regular Rate, Regular Rhythm Sepsis Event Note - Evaluation Sepsis Screening Result: No Definite Risk - Focused Exam Vital Signs: Vital Signs Temp Pulse Resp BP Pulse Ox 05/16/21 07:46 98.6 F 79 20 120/66 95 05/16/21 06:49 98.2 F 81 20 133/63 96 Consult PN Assessment/Plan POD#: 1 (1) Uncontrolled type 2 diabetes mellitus SNOMED Code(s): 587936969, 964435627 Code(s): E11.65 - TYPE 2 DIABETES MELLITUS WITH HYPERGLYCEMIA Current Visit: Yes (2) Abscess of right thigh SNOMED Code(s): 01211340197451609 Code(s): L02.415 - CUTANEOUS ABSCESS OF RIGHT LOWER LIMB Current Visit: Yes Problem List Initiated/Reviewed/Updated: Yes My Orders Last 24 Hours: My Active Orders 05/15/21 21:00 Insulin Glarg,Human.Rec.Analog [LantUS] 10 unit SUBCUT BID 05/16/21 09:00 Alogliptin Benzoate [Alogliptin] 25 mg PO DAILY 05/17/21 09:00 Remove Patch 1 ea TRDERM DAILY Plan: 41-year-old male with poorly controlled diabetes and hemoglobin A1c of 10.9 presented to the emergency department with skin and soft tissue infection of the right upper thigh. -Surgery managing skin lesion -Continue Lantus 10 units twice daily, medium dose sliding scale insulin with NovoLog, and alogliptin 25 mg daily. -fingerstick blood sugars 4 times daily. -Blood sugar goal between 140 - 180. -Will need close outpatient follow-up. -Consider starting Metformin as outpatient
[2021-05-16] MEDS ORDERED: Loratadine 10 MG Tab PO SCH (21:00)
[2021-05-17] MEDS: Clindamycin Phosphate in D5W 900 MG in Premix Bag 1 BAG IV SCH ×4 (01:07→11:25)
[2021-05-17] MEDS: Piperacillin/Tazobactam 4.5 GM in Sodium Chloride 0.9% 100 ML IV SCH ×2 (01:07→11:21)
[2021-05-17] MEDS: Vancomycin 2 GM in Sodium Chloride 0.9% 500 ML IV SCH ×2 (05:01→13:48)
[2021-05-17] MEDS: Enoxaparin 40 MG/0.4 ML Syringe SUBCUT SCH (08:09)
[2021-05-17] MEDS: Insulin Glarg,Human.Rec.Analog 100 Unit/ML SUBCUT SCH (08:12)
[2021-05-17] MEDS: Insulin Lispro 100 UNIT/ML 10 ML Vial SUBCUT SCH ×2 (08:12→11:59)
[2021-05-17] MEDS: Nicotine 7 MG/24 Hr Patch TRDERM SCH (08:13)
--- NOTE | 2021-05-17 08:38 | PCM.CONSN ---
- General Info Date of Service: 05/17/21 Admission Dx/Problem (Free Text): Admission Diagnosis/Problem Admission Diagnosis/Problem Infection of skin Functional Status: Reports: Pain Controlled, Tolerating Diet, Ambulating, Urinating. Denies: New Symptoms - Review of Systems General: Reports: No Symptoms. Denies: Fever, Weakness, Fatigue, Malaise, Chills HEENT: Reports: No Symptoms. Denies: Headaches, Sore Throat Pulmonary: Reports: No Symptoms. Denies: Shortness of Breath, Cough, Sputum, Wheezing Cardiovascular: Reports: No Symptoms. Denies: Chest Pain, Palpitations, Dyspnea on Exertion, Edema Gastrointestinal: Reports: No Symptoms. Denies: Abdominal Pain, Constipation, Diarrhea, Nausea, Vomiting Genitourinary: Reports: No Symptoms. Denies: Pain Musculoskeletal: Reports: Leg Pain (thigh ) Skin: Reports: No Symptoms. Denies: Cyanosis Neurological: Reports: No Symptoms. Denies: Confusion, Headache, Numbness, Pre- Existing Deficit, Syncope, Tingling, Difficulty Walking, Weakness, Gait Disturbance Psychiatric: Reports: No Symptoms - Patient Data Vitals - Most Recent: Last Vital Signs Temp 98.1 F 05/17/21 07:50 Pulse 83 05/17/21 07:50 Resp 16 05/17/21 07:50 BP 152/94 H 05/17/21 07:50 Pulse Ox 94 L 05/17/21 07:50 Weight - Most Recent: 362 lb 4.8 oz I&O - Last 24 Hours: Intake & Output 05/16/21 05/17/21 05/17/21 22:59 06:59 14:59 Intake Total 2150 2850 Output Total 1400 1900 Balance 750 950 Lab Results Last 24 Hours: Laboratory Results - last 24 hr 05/16/21 05/16/21 05/16/21 Range/Units 06:07 10:53 11:21 WBC (4.23-9.07) K/mm3 RBC (4.63-6.08) M/mm3 Hgb (13.7-17.5) gm/dl Hct (40.1-51.0) % MCV (79.0-92.2) fl MCH (25.7-32.2) pg MCHC (32.2-35.5) g/dl RDW Std Deviation (35.1-43.9) fL Plt Count (163-337) K/mm3 MPV (9.4-12.3) fl Neut % (Auto) (34.0-67.9) % Lymph % (Auto) (21.8-53.1) % Rooks % (Auto) (5.3-12.2) % Eos % (Auto) (0.8-7.0) Baso % (Auto) (0.1-1.2) % Neut # (Auto) (1.78-5.38) K/mm3 Lymph # (Auto) (1.32-3.57) K/mm3 Rooks # (Auto) (0.30-0.82) K/mm3 Eos # (Auto) (0.04-0.54) K/mm3 Baso # (Auto) (0.01-0.08) K/mm3 Manual Slide Review Abnormal smear Sodium (136-145) mEq/L Potassium (3.5-5.1) mEq/L Chloride (98-107) mEq/L Carbon Dioxide (21-32) mEq/L Anion Gap (5-15) BUN (7-18) mg/dL Creatinine (0.7-1.3) mg/dL Est Cr Clr Drug Dosing mL/min Estimated GFR (MDRD) (>60) mL/min BUN/Creatinine Ratio (14-18) Glucose (70-99) mg/dL POC Glucose 207 H (70-99) mg/dL Calcium (8.5-10.1) mg/dL Phosphorus (2.6-4.7) mg/dL Magnesium (1.8-2.4) mg/dL C-Reactive Protein (<1.0) mg/dL Vancomycin Trough 9.6 L (10.0-20.0) 05/16/21 05/16/21 05/17/21 Range/Units 17:13 21:20 04:42 WBC 13.19 H (4.23-9.07) K/mm3 RBC 3.92 L (4.63-6.08) M/mm3 Hgb 11.9 L (13.7-17.5) gm/dl Hct 36.7 L (40.1-51.0) % MCV 93.6 H (79.0-92.2) fl MCH 30.4 (25.7-32.2) pg MCHC 32.4 (32.2-35.5) g/dl RDW Std Deviation 42.7 (35.1-43.9) fL Plt Count 263 (163-337) K/mm3 MPV 9.5 (9.4-12.3) fl Neut % (Auto) 77.2 H (34.0-67.9) % Lymph % (Auto) 14.3 L (21.8-53.1) % Rooks % (Auto) 7.4 (5.3-12.2) % Eos % (Auto) 0.4 L (0.8-7.0) Baso % (Auto) 0.2 (0.1-1.2) % Neut # (Auto) 10.18 H (1.78-5.38) K/mm3 Lymph # (Auto) 1.88 (1.32-3.57) K/mm3 Rooks # (Auto) 0.98 H (0.30-0.82) K/mm3 Eos # (Auto) 0.05 (0.04-0.54) K/mm3 Baso # (Auto) 0.03 (0.01-0.08) K/mm3 Manual Slide Review Sodium (136-145) mEq/L Potassium (3.5-5.1) mEq/L Chloride (98-107) mEq/L Carbon Dioxide (21-32) mEq/L Anion Gap (5-15) BUN (7-18) mg/dL Creatinine (0.7-1.3) mg/dL Est Cr Clr Drug Dosing mL/min Estimated GFR (MDRD) (>60) mL/min BUN/Creatinine Ratio (14-18) Glucose (70-99) mg/dL POC Glucose 169 H 193 H (70-99) mg/dL Calcium (8.5-10.1) mg/dL Phosphorus (2.6-4.7) mg/dL Magnesium (1.8-2.4) mg/dL C-Reactive Protein (<1.0) mg/dL Vancomycin Trough (10.0-20.0) 05/17/21 05/17/21 Range/Units 04:42 06:16 WBC (4.23-9.07) K/mm3 RBC (4.63-6.08) M/mm3 Hgb (13.7-17.5) gm/dl Hct (40.1-51.0) % MCV (79.0-92.2) fl MCH (25.7-32.2) pg MCHC (32.2-35.5) g/dl RDW Std Deviation (35.1-43.9) fL Plt Count (163-337) K/mm3 MPV (9.4-12.3) fl Neut % (Auto) (34.0-67.9) % Lymph % (Auto) (21.8-53.1) % Rooks % (Auto) (5.3-12.2) % Eos % (Auto) (0.8-7.0) Baso % (Auto) (0.1-1.2) % Neut # (Auto) (1.78-5.38) K/mm3 Lymph # (Auto) (1.32-3.57) K/mm3 Rooks # (Auto) (0.30-0.82) K/mm3 Eos # (Auto) (0.04-0.54) K/mm3 Baso # (Auto) (0.01-0.08) K/mm3 Manual Slide Review Sodium 139 (136-145) mEq/L Potassium 3.3 L (3.5-5.1) mEq/L Chloride 101 (98-107) mEq/L Carbon Dioxide 28 (21-32) mEq/L Anion Gap 13.3 (5-15) BUN 8 (7-18) mg/dL Creatinine 0.6 L (0.7-1.3) mg/dL Est Cr Clr Drug Dosing 170.67 mL/min Estimated GFR (MDRD) > 60 (>60) mL/min BUN/Creatinine Ratio 13.3 L (14-18) Glucose 167 H (70-99) mg/dL POC Glucose 176 H (70-99) mg/dL Calcium 7.7 L (8.5-10.1) mg/dL Phosphorus 3.0 (2.6-4.7) mg/dL Magnesium 2.1 (1.8-2.4) mg/dL C-Reactive Protein 17.4 H* (<1.0) mg/dL Vancomycin Trough (10.0-20.0) Adrien Results Last 24 Hours: Microbiology 05/15/21 00:50 Blood Culture - Preliminary Blood - Venous - Lab Draw 05/15/21 00:35 Blood Culture - Preliminary Blood - Arm, Left Med Orders - Current: Current Medications Acetaminophen (Acetaminophen 325 Mg Tab) 650 mg PO Q4H PRN PRN Reason: Pain (Mild 1-3)/fever Last Admin: 05/15/21 20:37 Dose: 650 mg Documented by: Hydrocodone Bitart/Acetaminophen (Acetaminophen/Hydrocodone 325-5 Mg Tab) 2 tab PO Q6H PRN PRN Reason: Pain (moderate 4-6) Last Admin: 05/15/21 22:51 Dose: 2 tab Documented by: Albuterol (Albuterol 0.083% 2.5 Mg/3 Ml Neb Soln) 2.5 mg NEB ONETIME PRN PRN Reason: improve oxygenation Alogliptin Benzoate (Alogliptin 25 Mg Tab) 25 mg PO DAILY [facility] Last Admin: 05/17/21 08:13 Dose: 25 mg Documented by: Enoxaparin Sodium (Enoxaparin 40 Mg/0.4 Ml Syringe) 40 mg SUBCUT DAILY [facility] Last Admin: 05/17/21 08:09 Dose: 40 mg Documented by: Hydromorphone HCl (Hydromorphone 1 Mg/Ml Syringe) 1 mg IVPUSH Q6H PRN PRN Reason: Pain Clindamycin Phosphate 900 mg/ (Premix) 50 mls @ 100 mls/hr IV Q8H [facility] Last Admin: 05/17/21 01:07 Dose: 100 mls/hr Documented by: Piperacillin Sod/Tazobactam (Sod 4.5 gm/ Sodium Chloride) 100 mls @ 25 mls/hr IV Q8H [facility] Last Admin: 05/17/21 01:07 Dose: 25 mls/hr Documented by: Vancomycin HCl 2 gm/ Sodium (Chloride) 500 mls @ 250 mls/hr IV Q8H [facility] Last Admin: 05/17/21 05:01 Dose: 250 mls/hr Documented by: Insulin Glargine (Insulin Glarg,Human.Rec.Analog 100 Unit/Ml) 10 unit SUBCUT BID [facility] Last Admin: 05/17/21 08:12 Dose: 10 units Documented by: Insulin Human Lispro (Insulin Lispro 100 Unit/Ml 10 Ml Vial) 0 unit SUBCUT QIDACANDBED [facility]; Protocol Last Admin: 05/17/21 08:12 Dose: 2 units Documented by: Loratadine (Loratadine 10 Mg Tab) 10 mg PO BEDTIME [facility] Last Admin: 05/16/21 21:56 Dose: 10 mg Documented by: Miscellaneous Information (Remove Patch*Nicotine Patch*) 1 ea TRDERM DAILY [facility] Last Admin: 05/17/21 08:18 Dose: 1 ea Documented by: Nicotine (Nicotine 7 Mg/24 Hr Patch) 7 mg TRDERM DAILY [facility] Last Admin: 05/17/21 08:13 Dose: 7 mg Documented by: Ondansetron HCl (Ondansetron 4 Mg Tab.Dis) 4 mg PO Q4H PRN PRN Reason: nausea, able to take PO Polyethylene Glycol (Polyethylene Glycol 3350 Powder 17 Gm Packet) 17 gm PO DAILY PRN PRN Reason: Constipation Vancomycin HCl (Pharmacy To Dose - Vancomycin) 1 dose .XX ASDIRECTED PRN PRN Reason: RX TO DOSE VANCO Discontinued Medications Albuterol (Albuterol 0.083% 2.5 Mg/3 Ml Neb Soln) Confirm Administered Dose 2.5 mg .ROUTE .STK-MED ONE Stop: 05/15/21 08:19 Fentanyl (Fentanyl 100 Mcg/2 Ml Sdv) Confirm Administered Dose 100 mcg .ROUTE .STK-MED ONE Stop: 05/15/21 08:12 Fentanyl (Fentanyl 100 Mcg/2 Ml Sdv) 50 mcg IVPUSH Q20M PRN PRN Reason: Pain Glycopyrrolate (Glycopyrrolate 0.2 Mg/Ml 2 Ml Syringe) Confirm Administered Dose 0.4 mg .ROUTE .STK-MED ONE Stop: 05/15/21 08:11 Hydromorphone HCl (Hydromorphone 0.5 Mg/0.5 Ml Syringe) 0.5 mg IVPUSH Q10M PRN PRN Reason: Pain (severe 7-10) Sodium Chloride (Normal Saline) 1,000 mls @ 100 mls/hr IV ASDIRECTED [facility] Last Admin: 05/16/21 04:44 Dose: 150 mls/hr Documented by: Vancomycin HCl 2 gm/ Sodium (Chloride) 500 mls @ 250 mls/hr IV ONETIME ONE Stop: 05/15/21 00:22 Last Admin: 05/15/21 02:03 Dose: 250 mls/hr Documented by: Piperacillin Sod/Tazobactam (Sod 4.5 gm/ Sodium Chloride) 100 mls @ 200 mls/hr IV ONETIME ONE Stop: 05/15/21 00:51 Last Admin: 05/15/21 01:30 Dose: 200 mls/hr Documented by: Clindamycin Phosphate 900 mg/ (Premix) 50 mls @ 100 mls/hr IV ONETIME ONE Stop: 05/15/21 00:50 Last Admin: 05/15/21 00:57 Dose: 100 mls/hr Documented by: Sodium Chloride (Normal Saline) Confirm Administered Dose 1,000 mls @ as directed .ROUTE .STK-MED ONE Stop: 05/15/21 08:11 Sodium Chloride (Normal Saline) Confirm Administered Dose 1,000 mls @ as directed .ROUTE .STK-MED ONE Stop: 05/15/21 09:04 Vancomycin HCl 2 gm/ Sodium (Chloride) 500 mls @ 250 mls/hr IV Q8H [facility] Vancomycin HCl 2 gm/ Sodium (Chloride) 500 mls @ 250 mls/hr IV Q8H [facility] Lidocaine HCl (Xylocaine-Mpf 1%) Confirm Administered Dose 4 mls @ as directed .ROUTE .STK-MED ONE Stop: 05/15/21 15:58 Insulin Glargine (Insulin Glarg,Human.Rec.Analog 100 Unit/Ml) 10 unit SUBCUT DAILY [facility] Last Admin: 05/15/21 11:42 Dose: 10 units Documented by: Insulin Human Regular (Insulin Regular, Human 100 Units/Ml 3 Ml Vial) 10 unit SUBCUT ONETIME ONE Stop: 05/15/21 01:35 Last Admin: 05/15/21 01:51 Dose: 10 unit Documented by: Insulin Human Regular (Insulin Regular, Human 100 Units/Ml 3 Ml Vial) 0 unit SUBCUT QID [facility]; Protocol Last Admin: 05/16/21 05:03 Dose: Not Given Documented by: Ketamine HCl (Ketamine 500 Mg/10 Ml Mdv) Confirm Administered Dose 500 mg .ROUTE .STK-MED ONE Stop: 05/15/21 08:13 Midazolam HCl (Midazolam 1 Mg/Ml 2 Ml Sdv) Confirm Administered Dose 2 mg .ROUTE .STK-MED ONE Stop: 05/15/21 08:12 Midazolam HCl (Midazolam 1 Mg/Ml 2 Ml Sdv) Confirm Administered Dose 2 mg .ROUTE .STK-MED ONE Stop: 05/15/21 08:24 Ondansetron HCl (Ondansetron 4 Mg/2 Ml Sdv) Confirm Administered Dose 4 mg .ROUTE .STK-MED ONE Stop: 05/15/21 08:11 Ondansetron HCl (Ondansetron 4 Mg/2 Ml Sdv) 4 mg IVPUSH ONETIME PRN PRN Reason: Nausea/Vomiting Propofol (Propofol 200 Mg/20 Ml Sdv) Confirm Administered Dose 200 mg .ROUTE .STK-MED ONE Stop: 05/15/21 08:12 Propofol (Propofol 200 Mg/20 Ml Sdv) Confirm Administered Dose 200 mg .ROUTE .STK-MED ONE Stop: 05/15/21 08:49 Propofol (Propofol 200 Mg/20 Ml Sdv) Confirm Administered Dose 200 mg .ROUTE .STK-MED ONE Stop: 05/15/21 09:14 - Exam Quality Assessment: DVT Prophylaxis. No: Supplemental Oxygen, Urine Catheter General: Alert, Oriented, Cooperative, No Acute Distress HEENT: Pupils Equal, Pupils Reactive, Mucous Membr. Moist/[place] Neck: Supple, Trachea Midline Lungs: Clear to Auscultation, Normal Respiratory Effort Cardiovascular: Regular Rate, Regular Rhythm GI/Abdominal Exam: Normal Bowel Sounds, Soft, Non-Tender, No Distention (Male) Exam: Deferred Back Exam: Normal Inspection, Full Range of Motion Extremities: Normal Range of Motion, No Pedal Edema, Leg Pain (right medical thigh - improving ) Peripheral Pulses: 2+: Radial (L), Radial (R), Dorsalis Pedis (L), Dorsalis Pedis (R) Skin: Warm, Dry, Intact Neurological: No New Focal Deficit Psy/Mental Status: Alert, Normal Affect, Normal Mood Sepsis Event Note - Evaluation Sepsis Screening Result: Possible Sepsis Risk - Focused Exam Vital Signs: Vital Signs Temp Pulse Resp BP Pulse Ox 05/17/21 07:50 98.1 F 83 16 152/94 H 94 L 05/17/21 05:09 98.4 F 87 16 147/68 H 93 L 05/17/21 00:07 98.8 F 88 14 127/67 95 05/16/21 21:33 98.4 F 88 14 133/55 L 95 Consult PN Assessment/Plan POD#: 2 (1) Abscess of right thigh SNOMED Code(s): 01275831477733907 Code(s): L02.415 - CUTANEOUS ABSCESS OF RIGHT LOWER LIMB Priority: High Current Visit: Yes (2) Uncontrolled type 2 diabetes mellitus SNOMED Code(s): 697529045, 159497043 Code(s): E11.65 - TYPE 2 DIABETES MELLITUS WITH HYPERGLYCEMIA Priority: High Current Visit: Yes Qualifiers: Glycemic state: with hyperglycemia Qualified Code(s): E11.65 - Type 2 diabetes mellitus with hyperglycemia (3) Status post incision and drainage SNOMED Code(s): 531147454, 499756069 Code(s): Z98.890 - OTHER SPECIFIED POSTPROCEDURAL STATES Priority: High Current Visit: Yes (4) Current smoker SNOMED Code(s): 13671095 Code(s): F17.200 - NICOTINE DEPENDENCE, UNSPECIFIED, UNCOMPLICATED Priority: Medium Current Visit: Yes (5) Hypokalemia SNOMED Code(s): 94923070 Code(s): E87.6 - HYPOKALEMIA Priority: High Current Visit: Yes Problem List Initiated/Reviewed/Updated: Yes Plan: Abscess of right thigh Status post incision and drainage * Dr. Perez - general surgery managing skin lesion and subsequent care * S/P I&D on 05/15/[address] Perez Uncontrolled type 2 diabetes mellitus * A1C of 10.9 * Continue lantus 20 units BID * Medium intensity sliding scale insulin * QID AC and Bedtime blood glucose checks * Alogliptin 25mg daily * Consider Metformin at discharge * Will need close outpatient follow-up * telehealth nurse educator * Diabetic diet * Fiscal Analyst consultation Current smoker * Nicotine patches as ordered * Smoking cessation * Offer nicotine patches at discharge Hypokalemia * Supplement 40 mEq BID x2 doses * Monitor Code status: Full code PCP: Dr. Jono Mendez DVT prophylaxis: Lovenox (primary team managing) Disposition: Hospitalist service consulted to manage patient's diabetes. Disposition dependent on primary team.
[2021-05-17] MEDS ORDERED: Remove Patch*NICOTINE PATCH TRDERM SCH (09:00)
--- NOTE | 2021-05-17 10:36 | OR ---
DATE OF OPERATION: 05/15/2021 SURGEON: Giovani Perez MD PREOPERATIVE DIAGNOSIS: Soft tissue infection in the right medial upper thigh. POSTOPERATIVE DIAGNOSIS: Soft tissue infection in the right medial upper thigh. OPERATION PERFORMED: Excisional debridement of skin and subcutaneous tissue on the right upper medial thigh, size of debrided area is 8 cm in length, 6 cm in width, and 8 cm in depth. ANESTHESIA: Monitored anesthesia care. COMPLICATIONS: None. ESTIMATED BLOOD LOSS: About 300 mL. INDICATIONS AND CONSENT: Mr. Branch is a 41-year-old male with uncontrolled diabetes and smoking, who developed right upper medial thigh swelling and drainage of odorous purulent material. The patient also had fevers and chills in the last 24 hours. Due to this, patient presented to the emergency room in [place], [place]. The patient was transferred to our Emergency Department here. I saw the patient and recommended that we proceed with excisional debridement of this area since there was concern for soft tissue infection. We discussed risks, benefits, and alternatives, and informed consent was obtained. DESCRIPTION OF PROCEDURE: The patient was taken to the operating room, placed in supine position. The patient already had received triple antibiotics consisting of Zosyn, vancomycin, and clindamycin. The patient was placed in the lithotomy position after induction of monitored anesthesia care. A time-out was performed and then the area of concern was prepped and draped in the usual sterile fashion. Then, we began the procedure by making an incision over the devitalized skin tissue, and immediately, there was odorous necrotic tissue under the skin extending into subcutaneous tissue. Using a #10 scalpel blade, all the necrotic tissue was debrided down to the fresh bleeding tissue. There were several areas of tracking within the thigh that were all debrided out. Once this was done, the wound was irrigated with Irrisept and hemostasis obtained using cautery. The wound measured approximately 8 cm in length, 6 in width, and about 8 in depth. The wound was packed with moistened Kerlix gauze and dressed with ABD pad and Daniel bandage. This marked the end of the procedure. All instrument, sharps, and sponges were counted and found to be correct. The patient will be taken to the recovery area and back into the inpatient floor. MMODAL /[id number] JACKELINE
[2021-05-17] MEDS ORDERED: Potassium Chloride 20 MEQ Tab.ER PO SCH (11:00)
--- NOTE | 2021-05-17 13:14 | PCM.SN.2 ---
- Free Text/Narrative Note: 05/17/21 [id number] IV started times 1 attempt 20 guage left wrist area. Secured and flushed. Sofy
--- NOTE | 2021-05-17 16:45 | PCM.DCSUM1 ---
Discharge Summary - Hospital Course Free Text/Narrative:: Patient had a wound on the right medial thigh. He underwent debridement on 05/15. with removal of all necrotic tissues. He was placed on triple antibiotics for severe soft tissue infection. He is doing better now. He will continue BID dressing changes at home. Diagnosis: Stroke: No - Discharge Data Discharge Date: 05/17/21 Discharge Disposition: Home, Self-Care 01 Condition: Good - Referral to Home Health Primary Care Physician: Jono Mendez MD - Patient Summary/Data Consults: Consultations 05/15/21 07:58 Consult to Physician [CONS] Routine 05/17/21 10:40 Consult to Diabetic Nurse Specialist [CONS] Routine Consult to Nonprofit Director [CONS] Routine - Patient Instructions Diet: Heart Healthy Diet Activity: As Tolerated Driving: Do Not Drive (until when not taking opioid pain medications) Showering/Bathing: May Shower (re-dress the wound after a shower) Wound/Incision Care: Change Dressing Daily (twice daily) Notify Provider of: Fever, Swelling and Redness Other/Special Instructions: WOUND CARE INSTRUCTIONS. - Pack the wound with a saline-moistened Kerlix gauze. Then secure the packing with an ABD pad and Daniel wrap. Change dressing twice daily. - Discharge Plan *PRESCRIPTION DRUG MONITORING PROGRAM REVIEWED*: No *COPY OF PRESCRIPTION DRUG MONITORING REPORT IN PATIENT MICHAEL: No Prescriptions/Med Rec: Amoxicillin/Potassium Clav [Augmentin 875-125 Tablet] 1 each PO BID 10 Days #20 tablet Home Medications: Home Meds Cetirizine HCl [Zyrtec] 1 tab PO BEDTIME 05/14/21 [History] Acetaminophen [Tylenol] 650 mg PO Q4H PRN tablet 05/17/21 [Rx] Alogliptin Benzoate [Alogliptin] 25 mg PO DAILY #0 tablet 05/17/21 [Rx] Amoxicillin/Potassium Clav [Augmentin 875-125 Tablet] 1 each PO BID 10 Days #20 tablet 05/17/21 [Rx] Insulin Glarg,Human.Rec.Analog [Lantus] 10 unit SUBCUT BID ml 05/17/21 [Rx] Insulin Lispro [Humalog] 0 unit SUBCUT QIDACANDBED ml 05/17/21 [Rx] Oxygen Therapy Mode: Room Air Patient Handouts: Smokeless Tobacco Information, Adult, Steps to Quit Smoking Forms: ED Department Discharge Referrals: Jono Mendez MD [Primary Care Provider] - Giovani Perez MD [Emergency Provider] - (1-2 weeks) - Discharge Summary/Plan Comment DC Time >30 min.: Yes Total # of Minutes for Discharge Time: 40 Discharge Summary/Plan Comment: oral antibiotics and wound care with dressing changes - Patient Data Vitals - Most Recent: Last Vital Signs Temp 98.1 F 05/17/21 15:06 Pulse 85 05/17/21 15:06 Resp 18 05/17/21 15:06 BP 153/80 H 05/17/21 15:06 Pulse Ox 97 05/17/21 15:06 Weight - Most Recent: 164.337 kg I&O - Last 24 hours: Intake & Output 05/17/21 05/17/21 05/17/21 06:59 14:59 22:59 Intake Total 2850 200 3200 Output Total 1900 4400 Balance 950 200 -1200 Lab Results - Last 24 hrs: Laboratory Results - last 24 hr 05/16/21 05/16/21 05/17/21 Range/Units 17:13 21:20 04:42 WBC 13.19 H (4.23-9.07) K/mm3 RBC 3.92 L (4.63-6.08) M/mm3 Hgb 11.9 L (13.7-17.5) gm/dl Hct 36.7 L (40.1-51.0) % MCV 93.6 H (79.0-92.2) fl MCH 30.4 (25.7-32.2) pg MCHC 32.4 (32.2-35.5) g/dl RDW Std Deviation 42.7 (35.1-43.9) fL Plt Count 263 (163-337) K/mm3 MPV 9.5 (9.4-12.3) fl Neut % (Auto) 77.2 H (34.0-67.9) % Lymph % (Auto) 14.3 L (21.8-53.1) % [place] % (Auto) 7.4 (5.3-12.2) % Eos % (Auto) 0.4 L (0.8-7.0) Baso % (Auto) 0.2 (0.1-1.2) % Neut # (Auto) 10.18 H (1.78-5.38) K/mm3 Lymph # (Auto) 1.88 (1.32-3.57) K/mm3 [place] # (Auto) 0.98 H (0.30-0.82) K/mm3 Eos # (Auto) 0.05 (0.04-0.54) K/mm3 Baso # (Auto) 0.03 (0.01-0.08) K/mm3 Sodium (136-145) mEq/L Potassium (3.5-5.1) mEq/L Chloride (98-107) mEq/L Carbon Dioxide (21-32) mEq/L Anion Gap (5-15) BUN (7-18) mg/dL Creatinine (0.7-1.3) mg/dL Est Cr Clr Drug Dosing mL/min Estimated GFR (MDRD) (>60) mL/min BUN/Creatinine Ratio (14-18) Glucose (70-99) mg/dL POC Glucose 169 H 193 H (70-99) mg/dL Calcium (8.5-10.1) mg/dL Phosphorus (2.6-4.7) mg/dL Magnesium (1.8-2.4) mg/dL C-Reactive Protein (<1.0) mg/dL Vancomycin Trough (10.0-20.0) 05/17/21 05/17/21 05/17/21 Range/Units 04:42 06:16 10:51 WBC (4.23-9.07) K/mm3 RBC (4.63-6.08) M/mm3 Hgb (13.7-17.5) gm/dl Hct (40.1-51.0) % MCV (79.0-92.2) fl MCH (25.7-32.2) pg MCHC (32.2-35.5) g/dl RDW Std Deviation (35.1-43.9) fL Plt Count (163-337) K/mm3 MPV (9.4-12.3) fl Neut % (Auto) (34.0-67.9) % Lymph % (Auto) (21.8-53.1) % [place] % (Auto) (5.3-12.2) % Eos % (Auto) (0.8-7.0) Baso % (Auto) (0.1-1.2) % Neut # (Auto) (1.78-5.38) K/mm3 Lymph # (Auto) (1.32-3.57) K/mm3 [place] # (Auto) (0.30-0.82) K/mm3 Eos # (Auto) (0.04-0.54) K/mm3 Baso # (Auto) (0.01-0.08) K/mm3 Sodium 139 (136-145) mEq/L Potassium 3.3 L (3.5-5.1) mEq/L Chloride 101 (98-107) mEq/L Carbon Dioxide 28 (21-32) mEq/L Anion Gap 13.3 (5-15) BUN 8 (7-18) mg/dL Creatinine 0.6 L (0.7-1.3) mg/dL Est Cr Clr Drug Dosing 170.67 mL/min Estimated GFR (MDRD) > 60 (>60) mL/min BUN/Creatinine Ratio 13.3 L (14-18) Glucose 167 H (70-99) mg/dL POC Glucose 176 H 151 H (70-99) mg/dL Calcium 7.7 L (8.5-10.1) mg/dL Phosphorus 3.0 (2.6-4.7) mg/dL Magnesium 2.1 (1.8-2.4) mg/dL C-Reactive Protein 17.4 H* (<1.0) mg/dL Vancomycin Trough (10.0-20.0) 05/17/21 05/17/21 Range/Units 11:33 16:32 WBC (4.23-9.07) K/mm3 RBC (4.63-6.08) M/mm3 Hgb (13.7-17.5) gm/dl Hct (40.1-51.0) % MCV (79.0-92.2) fl MCH (25.7-32.2) pg MCHC (32.2-35.5) g/dl RDW Std Deviation (35.1-43.9) fL Plt Count (163-337) K/mm3 MPV (9.4-12.3) fl Neut % (Auto) (34.0-67.9) % Lymph % (Auto) (21.8-53.1) % [place] % (Auto) (5.3-12.2) % Eos % (Auto) (0.8-7.0) Baso % (Auto) (0.1-1.2) % Neut # (Auto) (1.78-5.38) K/mm3 Lymph # (Auto) (1.32-3.57) K/mm3 [place] # (Auto) (0.30-0.82) K/mm3 Eos # (Auto) (0.04-0.54) K/mm3 Baso # (Auto) (0.01-0.08) K/mm3 Sodium (136-145) mEq/L Potassium (3.5-5.1) mEq/L Chloride (98-107) mEq/L Carbon Dioxide (21-32) mEq/L Anion Gap (5-15) BUN (7-18) mg/dL Creatinine (0.7-1.3) mg/dL Est Cr Clr Drug Dosing mL/min Estimated GFR (MDRD) (>60) mL/min BUN/Creatinine Ratio (14-18) Glucose (70-99) mg/dL POC Glucose 126 H (70-99) mg/dL Calcium (8.5-10.1) mg/dL Phosphorus (2.6-4.7) mg/dL Magnesium (1.8-2.4) mg/dL C-Reactive Protein (<1.0) mg/dL Vancomycin Trough 14.1 (10.0-20.0) Med Orders - Current: Current Medications Acetaminophen (Acetaminophen 325 Mg Tab) 650 mg PO Q4H PRN PRN Reason: Pain (Mild 1-3)/fever Last Admin: 05/15/21 20:37 Dose: 650 mg Documented by: Hydrocodone Bitart/Acetaminophen (Acetaminophen/Hydrocodone 325-5 Mg Tab) 2 tab PO Q6H PRN PRN Reason: Pain (moderate 4-6) Last Admin: 05/15/21 22:51 Dose: 2 tab Documented by: Alogliptin Benzoate (Alogliptin 25 Mg Tab) 25 mg PO DAILY [facility] Last Admin: 05/17/21 08:13 Dose: 25 mg Documented by: Enoxaparin Sodium (Enoxaparin 40 Mg/0.4 Ml Syringe) 40 mg SUBCUT DAILY [facility] Last Admin: 05/17/21 08:09 Dose: 40 mg Documented by: Hydromorphone HCl (Hydromorphone 1 Mg/Ml Syringe) 1 mg IVPUSH Q6H PRN PRN Reason: Pain Clindamycin Phosphate 900 mg/ (Premix) 50 mls @ 100 mls/hr IV Q8H [facility] Last Admin: 05/17/21 11:25 Dose: 100 mls/hr Documented by: Piperacillin Sod/Tazobactam (Sod 4.5 gm/ Sodium Chloride) 100 mls @ 25 mls/hr IV Q8H [facility] Last Admin: 05/17/21 11:21 Dose: 25 mls/hr Documented by: Vancomycin HCl 2 gm/ Sodium (Chloride) 500 mls @ 250 mls/hr IV Q8H [facility] Last Admin: 05/17/21 13:48 Dose: 250 mls/hr Documented by: Potassium Chloride 10 meq/ (Premix) 100 mls @ 100 mls/hr IV Q1H [facility] Stop: 05/17/21 16:59 Insulin Glargine (Insulin Glarg,Human.Rec.Analog 100 Unit/Ml) 10 unit SUBCUT BID [facility] Last Admin: 05/17/21 08:12 Dose: 10 units Documented by: Insulin Human Lispro (Insulin Lispro 100 Unit/Ml 10 Ml Vial) 0 unit SUBCUT QIDACANDBED [facility]; Protocol Last Admin: 05/17/21 11:59 Dose: 2 units Documented by: Loratadine (Loratadine 10 Mg Tab) 10 mg PO BEDTIME [facility] Last Admin: 05/16/21 21:56 Dose: 10 mg Documented by: Miscellaneous Information (Remove Patch*Nicotine Patch*) 1 ea TRDERM DAILY [facility] Last Admin: 05/17/21 08:18 Dose: 1 ea Documented by: Nicotine (Nicotine 7 Mg/24 Hr Patch) 7 mg TRDERM DAILY [facility] Last Admin: 05/17/21 08:13 Dose: 7 mg Documented by: Ondansetron HCl (Ondansetron 4 Mg Tab.Dis) 4 mg PO Q4H PRN PRN Reason: nausea, able to take PO Polyethylene Glycol (Polyethylene Glycol 3350 Powder 17 Gm Packet) 17 gm PO DAILY PRN PRN Reason: Constipation Potassium Chloride (Potassium Chloride 20 Meq Tab.Er) 40 meq PO BID [facility] Stop: 05/17/21 21:01 Last Admin: 05/17/21 11:58 Dose: 40 meq Documented by: Vancomycin HCl (Pharmacy To Dose - Vancomycin) 1 dose .XX ASDIRECTED PRN PRN Reason: RX TO DOSE VANCO Discontinued Medications Albuterol (Albuterol 0.083% 2.5 Mg/3 Ml Neb Soln) Confirm Administered Dose 2.5 mg .ROUTE .STK-MED ONE Stop: 05/15/21 08:19 Albuterol (Albuterol 0.083% 2.5 Mg/3 Ml Neb Soln) 2.5 mg NEB ONETIME PRN PRN Reason: improve oxygenation Fentanyl (Fentanyl 100 Mcg/2 Ml Sdv) Confirm Administered Dose 100 mcg .ROUTE .STK-MED ONE Stop: 05/15/21 08:12 Fentanyl (Fentanyl 100 Mcg/2 Ml Sdv) 50 mcg IVPUSH Q20M PRN PRN Reason: Pain Glycopyrrolate (Glycopyrrolate 0.2 Mg/Ml 2 Ml Syringe) Confirm Administered Dose 0.4 mg .ROUTE .STK-MED ONE Stop: 05/15/21 08:11 Hydromorphone HCl (Hydromorphone 0.5 Mg/0.5 Ml Syringe) 0.5 mg IVPUSH Q10M PRN PRN Reason: Pain (severe 7-10) Sodium Chloride (Normal Saline) 1,000 mls @ 100 mls/hr IV ASDIRECTED [facility] Last Admin: 05/16/21 04:44 Dose: 150 mls/hr Documented by: Vancomycin HCl 2 gm/ Sodium (Chloride) 500 mls @ 250 mls/hr IV ONETIME ONE Stop: 05/15/21 00:22 Last Admin: 05/15/21 02:03 Dose: 250 mls/hr Documented by: Piperacillin Sod/Tazobactam (Sod 4.5 gm/ Sodium Chloride) 100 mls @ 200 mls/hr IV ONETIME ONE Stop: 05/15/21 00:51 Last Admin: 05/15/21 01:30 Dose: 200 mls/hr Documented by: Clindamycin Phosphate 900 mg/ (Premix) 50 mls @ 100 mls/hr IV ONETIME ONE Stop: 05/15/21 00:50 Last Admin: 05/15/21 00:57 Dose: 100 mls/hr Documented by: Sodium Chloride (Normal Saline) Confirm Administered Dose 1,000 mls @ as directed .ROUTE .STK-MED ONE Stop: 05/15/21 08:11 Sodium Chloride (Normal Saline) Confirm Administered Dose 1,000 mls @ as directed .ROUTE .STK-MED ONE Stop: 05/15/21 09:04 Vancomycin HCl 2 gm/ Sodium (Chloride) 500 mls @ 250 mls/hr IV Q8H [facility] Vancomycin HCl 2 gm/ Sodium (Chloride) 500 mls @ 250 mls/hr IV Q8H [facility] Lidocaine HCl (Xylocaine-Mpf 1%) Confirm Administered Dose 4 mls @ as directed .ROUTE .STK-MED ONE Stop: 05/15/21 15:58 Insulin Glargine (Insulin Glarg,Human.Rec.Analog 100 Unit/Ml) 10 unit SUBCUT DAILY [facility] Last Admin: 05/15/21 11:42 Dose: 10 units Documented by: Insulin Human Regular (Insulin Regular, Human 100 Units/Ml 3 Ml Vial) 10 unit SUBCUT ONETIME ONE Stop: 05/15/21 01:35 Last Admin: 05/15/21 01:51 Dose: 10 unit Documented by: Insulin Human Regular (Insulin Regular, Human 100 Units/Ml 3 Ml Vial) 0 unit SUBCUT QID [facility]; Protocol Last Admin: 05/16/21 05:03 Dose: Not Given Documented by: Ketamine HCl (Ketamine 500 Mg/10 Ml Mdv) Confirm Administered Dose 500 mg .ROUTE .ST-MED ONE Stop: 05/15/21 08:13 Midazolam HCl (Midazolam 1 Mg/Ml 2 Ml Sdv) Confirm Administered Dose 2 mg .ROUTE .STK-MED ONE Stop: 05/15/21 08:12 Midazolam HCl (Midazolam 1 Mg/Ml 2 Ml Sdv) Confirm Administered Dose 2 mg .ROUTE .ST-MED ONE Stop: 05/15/21 08:24 Ondansetron HCl (Ondansetron 4 Mg/2 Ml Sdv) Confirm Administered Dose 4 mg .ROUTE .STK-MED ONE Stop: 05/15/21 08:11 Ondansetron HCl (Ondansetron 4 Mg/2 Ml Sdv) 4 mg IVPUSH ONETIME PRN PRN Reason: Nausea/Vomiting Propofol (Propofol 200 Mg/20 Ml Sdv) Confirm Administered Dose 200 mg .ROUTE .STK-MED ONE Stop: 05/15/21 08:12 Propofol (Propofol 200 Mg/20 Ml Sdv) Confirm Administered Dose 200 mg .ROUTE .STK-MED ONE Stop: 05/15/21 08:49 Propofol (Propofol 200 Mg/20 Ml Sdv) Confirm Administered Dose 200 mg .ROUTE .STK-MED ONE Stop: 05/15/21 09:14
[2021-05-17] MEDS: Potassium Chloride 10 MEQ in Premix Bag 1 BAG IV SCH ×2 (17:00→17:01)
--- NOTE | 2021-05-18 09:44 | PCM.SN.2 ---
- Free Text/Narrative Note: There was some confusion on discharge about patient's diabetic medications. Patient contacted today to review diabetic supplies and medications. Patient will be started on Metformin 500 mg twice daily with meals. He will also receive 20 units subcutaneous daily Lantus via pen. He stated that he does have some blood glucose monitoring supplies but he is nearly out. Prescription was sent for lancets, testing strips, and a new meter if the patient needs that. He was instructed to take his blood sugars 3 times a day before meals and at bedtime and record these in a journal. He was instructed to bring this with to all medical appointments for review. Patient agreed with this plan and there were no further questions or concerns by the patient.
== END 2021-05-17 19:02 | disposition home or self-care (01) ==
LOC: JD.SDS 23:22 → JD.ED 23:22 → UNDOADMOB 05-15 02:04 → JD.MS 05-15 02:04 → JD.ED 05-15 02:30 → UNDODISOB 05-17 19:02
PROVIDERS: ADMIT Surgery; ATTEND Surgery
DX: M79.89 Other specified soft tissue disorders (principal); E11.9 Type 2 diabetes mellitus without complications; F17.210 Nicotine dependence, cigarettes, uncomplicated; Z79.899 Other long term (current) drug therapy; Z88.0 Allergy status to penicillin; Z88.8 Allergy status to other drugs, medicaments and biological substances; Z01.812 Encounter for preprocedural laboratory examination; Z20.822 Contact with and (suspected) exposure to COVID-19
CPT/HCPCS: 11042; 11045; 36415; 80048; 80053; 80202; 82947; 83036; 83605; 83735; 84100; 85025; 86140; 87040; 87635; 88307; 94762; 96365; 96367; 96368; 99284; A9270; J1650; J1815; J2250; J2405; J2543; J2704; J3010; J3370; J3490; J7030; J7040; 00400; 36410; 96366; 96372; 99140; 99221; 99231; 99232; G0378; U0002